=== PATIENT | male | born 1955 | race Caucasian/White ===

== ENCOUNTER 2019-12-08 08:52 | Day surgery (SDC) | payer MEDICARE ==
[~2019-12-08] VITALS: Ht 182.9 cm; Wt 110.4 kg
[2019-12-08 09:00] VITALS: BP 151/74
[2019-12-08] MEDS ORDERED: albumin 25% 100mL bottle x 1 IV PRN (09:15)
[2019-12-08] MEDS ORDERED: GABA300C PO (09:49)
[2019-12-08] MEDS ORDERED: IBUP-1986 PO (09:49)
[2019-12-08] MEDS ORDERED: BALANCE (09:49)
[2019-12-08] MEDS ORDERED: MAGN400C3 (09:49)
[2019-12-08] MEDS ORDERED: boswellia (09:49)
[2019-12-08] MEDS ORDERED: POTA-82 PO (09:49)
[2019-12-08] MEDS ORDERED: LOSA50TA3 PO (09:49)
[2019-12-08] MEDS ORDERED: ASPI-611 PO (09:49)
[2019-12-08] MEDS ORDERED: GELATIN (09:49)
[2019-12-08] MEDS ORDERED: CETI1TAB PO (09:49)
[2019-12-08] MEDS ORDERED: vitamin d (09:49)
[2019-12-08] MEDS ORDERED: [UNRECOGNIZED DRUG - OTHER] (09:49)
[2019-12-08] MEDS ORDERED: DOXA2TAB46 PO (09:49)
[2019-12-08] MEDS ORDERED: turmeric (09:49)
[2019-12-08] MEDS ORDERED: [UNRECOGNIZED DRUG - OTHER] (09:49)
[2019-12-08] MEDS ORDERED: METO100T14 PO (09:49)
[2019-12-08] MEDS ORDERED: [UNRECOGNIZED DRUG - OTHER] (09:49)
[2019-12-08] MEDS ORDERED: FURO-150 PO (09:49)
[2019-12-08 10:02] VITALS: BP 152/83
[2019-12-08 10:21] VITALS: BP 149/86
[2019-12-08 10:40] VITALS: BP 128/59
== END 2019-12-08 11:15 | disposition home or self-care (01) ==
LOC: SSTAY O 08:52
PROVIDERS: ATTEND Radiology Diagnostic Radiology
DX: J90 Pleural effusion, not elsewhere classified (principal); I25.2 Old myocardial infarction; F12.90 Cannabis use, unspecified, uncomplicated; Z95.1 Presence of aortocoronary bypass graft; Z72.89 Other problems related to lifestyle; Z88.8 Allergy status to other drugs, medicaments and biological substances; Z88.5 Allergy status to narcotic agent; Z79.899 Other long term (current) drug therapy
CPT/HCPCS: 32555; 71045

== ENCOUNTER 2020-01-08 08:20 | Day surgery (SDC) | payer MEDICARE ==
[~2020-01-08] VITALS: Ht 182.9 cm; Wt 112.2 kg
[~2020-01-08 08:20] MED LIST: ASPI-611 PO; BALANCE; CETI1TAB PO; DOXA2TAB46 PO; FURO-150 PO; GABA300C PO; GELATIN; IBUP-1986 PO; LOSA50TA3 PO; MAGN400C3; METO100T14 PO; POTA-82 PO; [UNRECOGNIZED DRUG - OTHER]; [UNRECOGNIZED DRUG - OTHER]; [UNRECOGNIZED DRUG - OTHER]; boswellia; turmeric; vitamin d
[2020-01-08 08:41] VITALS: BP 151/66
== END 2020-01-08 09:49 | disposition home or self-care (01) ==
LOC: SSTAY O 08:20
PROVIDERS: ATTEND Radiology Vascular & Interventional Radiology
DX: J90 Pleural effusion, not elsewhere classified (principal); Z95.1 Presence of aortocoronary bypass graft; I25.2 Old myocardial infarction; F12.90 Cannabis use, unspecified, uncomplicated; Z72.89 Other problems related to lifestyle; Z88.5 Allergy status to narcotic agent; Z88.8 Allergy status to other drugs, medicaments and biological substances; Z79.899 Other long term (current) drug therapy; Z79.82 Long term (current) use of aspirin
CPT/HCPCS: 32555; 71045